=== PATIENT | male | born 1945 | race Caucasian/White ===

== ENCOUNTER 2018-06-07 10:24 | Day surgery (SDC) | payer MEDICARE, OTHER, MEDICAID ==
[2018-06-07] MEDS ORDERED: CEFAZOLIN 1 GM/50 ML (PMX) 50 ML IVPB ×2 (12:56→13:30)
[2018-06-07] MEDS ORDERED: PROPOFOL 20 ML (13:10)
[2018-06-07] MEDS ORDERED: OXYCODONE/ACETAMINOPHEN (5/325) TAB PO ×2 (13:30)
[2018-06-07] MEDS ORDERED: METOCLOPRAMIDE 10 MG INJ IV (13:30)
[2018-06-07] MEDS ORDERED: MEPERIDINE 25 MG INJ IV (13:30)
[2018-06-07] MEDS ORDERED: DIPHENHYDRAMINE 50 MG INJ IV (13:30)
[2018-06-07] MEDS ORDERED: HYDROmorphONE 1 MG/5 ML IV SYRINGE IV ×3 (13:30)
== END 2018-06-07 14:28 | disposition home or self-care (01) ==
LOC: GIL 10:24
DX: K21.0 Gastro-esophageal reflux disease with esophagitis (principal); E11.9 Type 2 diabetes mellitus without complications; I10 Essential (primary) hypertension; Z94.0 Kidney transplant status; Z79.4 Long term (current) use of insulin
CPT/HCPCS: 43239; 82962; 88305; 88312; 88313